=== PATIENT | male | born 1950 | race Caucasian/White ===

== ENCOUNTER 2018-07-23 15:41 | Emergency (ER) | payer MEDICARE ==
[~2018-07-23] VITALS: Ht 177.8 cm; Wt 95.3 kg
[2018-07-23] MEDS ORDERED: NAPROSYN500 MG PO (15:50)
== END 2018-07-23 17:17 | disposition home or self-care (01) ==
LOC: ED 15:41
DX: S60.222A Contusion of left hand, initial encounter (principal); R03.0 Elevated blood-pressure reading, without diagnosis of hypertension; Z88.0 Allergy status to penicillin; W23.0XXA Caught, crushed, jammed, or pinched between moving objects, initial encounter; Y93.89 Activity, other specified; Y92.89 Other specified places as the place of occurrence of the external cause; Y99.8 Other external cause status

== ENCOUNTER 2022-11-06 15:57 | Emergency (ER) | payer MEDICARE ==
[~2022-11-06] VITALS: Wt 90.7 kg
[~2022-11-06 15:57] MED LIST: NAPROSYN500 MG PO
[2022-11-06] MEDS ORDERED: CYCLOBENZAPRINE10 MG PO (20:34)
[2022-11-06] MEDS ORDERED: MEDROL DOSEPAK4 MG PO (20:34)
[2022-11-06] MEDS ORDERED: NAPROSYN500 MG PO (20:34)
== END 2022-11-06 20:59 | disposition home or self-care (01) ==
LOC: ED 15:57
DX: M54.12 Radiculopathy, cervical region (principal); Z88.0 Allergy status to penicillin